=== PATIENT | male | born 1975 | race Two or more races ===

== ENCOUNTER 2023-05-09 07:48 | Day surgery (SDC) | payer BC ==
[2023-04-30 15:35] LABS: BASOPHILS # (AUTO) 0.1 X10'3 (0-0.2); BASOPHILS % (AUTO) 0.7 % (0-1); EOSINOPHILS # (AUTO) 0.2 X10'3 (0-0.9); LYMPHOCYTES % (AUTO) 38.7 % (21-51); MEAN CORPUSCULAR HEMOGLOBIN 30.2 PG (27.0-31.0); MEAN CORPUSCULAR HGB CONC 34.2 g/dL (33.0-36.5); MEAN CORPUSCULAR VOLUME 88.2 FL (78-98); MEAN PLATELET VOLUME 9.9 FL (7.4-10.4); MONOCYTES # (AUTO) 0.5 X10'3 (0-0.9); MONOCYTES % (AUTO) 6.6 % (2-12); PRE OP HEMATOCRIT 46.6 % (42.0-52.0); PRE OP PLATELET COUNT 220 X10'3 (140-440); PRE OP WHITE BLOOD COUNT 7.7 10'3 (4.8-10.8); RED BLOOD COUNT 5.28 X10'6 (4.70-6.10); RED CELL DISTRIBUTION WIDTH 13.1 % (11.5-14.5)
[2023-04-30 15:41] LABS: BILIRUBIN,URINE NEGATIVE (Neg); CLARITY,URINE CLEAR (Clear); COLOR,URINE YELLOW (Yellow); GLUCOSE, URINE >=1000 mg/dl (Neg); KETONES,URINE NEGATIVE (Neg); LEUKOCYTE ESTERASE ,URINE NEGATIVE (Neg); NITRITES, URINE NEGATIVE (Neg); OCCULT BLOOD,URINE NEGATIVE (Neg); PH,URINE 5.5 (4.8-8.0); PROTEIN,URINE NEGATIVE (Neg); UROBILINOGEN,URINE 0.2 E.U/dL (0.2-1.0)
[2023-04-30 15:43] LABS: UA COLLECTION TYPE CLN CATCH MIDSTREAM
[2023-04-30 15:50] LABS: ALBUMIN 4.3 G/DL (3.4-5.0); ALBUMIN/GLOBULIN RATIO 1.2 (1.1-1.5); ALKALINE PHOSPHATASE 151 IU/L (46-116); BLOOD UREA NITROGEN 16 MG/DL (7-18); BUN/CREATININE RATIO 15.1 (10.0-20.0); CALCIUM 9.6 MG/DL (8.5-10.1); CHLORIDE 103 MMOL/L (99-107); CREATININE 1.06 MG/DL (0.60-1.10); PRE OP ANION GAP 12 (8-16); PRE OP AST 62 U/L (10-37); PRE OP BILIRUB, TOTAL 1.1 MG/DL (0.0-1.0); PRE OP SODIUM 139 MMOL/L (135-145); TOTAL CARBON DIOXIDE 24.1 MMOL/L (24-32); eGFR 75 ML/MIN
[2023-04-30 15:59] LABS: PRE OP GLUCOSE 265 MG/DL (70-104)
[2023-04-30 16:01] LABS: PRE OP ALT 148 U/L (30-65)
[2023-04-30 16:07] LABS: MUCUS STRANDS FEW /LPF (Neg); SQUAMOUS EPITHELIAL CELL,UR FEW /LPF (FEW)
[2023-04-30 16:08] LABS: BACTERIA,URINE FEW /HPF (Neg); RBC,URINE 0-2 /HPF (0-2); WBC,URINE 0-4 /HPF (0-4)
[2023-04-30 17:25] LABS: HEMOGLOBIN A1C 8.2 % (4.5-6.2)
[~2023-05-09] VITALS: Ht 182.9 cm; Wt 102.4 kg
[2023-05-09] VITALS (11 sets, daily range): BP systolic 123–141; BP diastolic 76–97; PULSE 65–88; RESP 12–16; TEMP 98.1; O2SAT 94–98
[2023-05-09] MEDS: cefazolin 2gm/D5W 100mL 100 ML IV ONE ×2 (05:30→08:49)
[~2023-05-09 07:48] MED LIST: ERYT1OIN6 RIGHTEYE; METF-436 PO; famotidine 20mg tablet PO ONE; ringers solution, lacted 1,000 ML IV SCH
[2023-05-09] MEDS ORDERED: ondansetron/PF 4mg/2ml inj IV PRN (08:20)
[2023-05-09] MEDS ORDERED: morphine 4 MG/ML inj SYRINge IV PRN (08:20)
[2023-05-09] MEDS ORDERED: morphine 2 MG/ML inj. syringe IV PRN (08:20)
[2023-05-09] MEDS ORDERED: meperidine/PF 25mg/ml syringe IV PRN ×3 (08:20)
[2023-05-09] MEDS ORDERED: proCHLORperazine 10 MG/2 ml inj IV PRN (08:20)
[2023-05-09] MEDS ORDERED: ringers solution, lacted 1,000 ML IV SCH (08:20)
[2023-05-09 09:35] LABS: ALBUMIN 4.3 G/DL (3.4-5.0); ALBUMIN/GLOBULIN RATIO 1.3 (1.1-1.5); ALKALINE PHOSPHATASE 100 IU/L (46-116); BLOOD UREA NITROGEN 16 MG/DL (7-18); BUN/CREATININE RATIO 16.7 (10.0-20.0); CALCIUM 9.1 MG/DL (8.5-10.1); CHLORIDE 104 MMOL/L (99-107); CREATININE 0.96 MG/DL (0.60-1.10); PRE OP ANION GAP 11 (8-16); PRE OP AST 66 U/L (10-37); PRE OP BILIRUB, TOTAL 1.8 MG/DL (0.0-1.0); PRE OP GLUCOSE 165 MG/DL (70-104); PRE OP POTASSIUM 3.8 MMOL/L (3.4-5.1); PRE OP SODIUM 139 MMOL/L (135-145); TOTAL CARBON DIOXIDE 24.1 MMOL/L (24-32); TOTAL PROTEIN 7.7 G/DL (6.4-8.2); eCRCL 103 ML/MIN; eGFR 84 ML/MIN
[2023-05-09 09:55] LABS: PRE OP ALT 155 U/L (30-65)
[2023-05-09] MEDS ORDERED: BUPIVAcaine/PF 2.5 mg/ml (0.25%) 30ml vial ONE (10:41)
[2023-05-09] MEDS ORDERED: LIDOcaine 1% (10mg/ml)w/preservative inj. 20ml MDV ONE (10:41)
[2023-05-09] MEDS ORDERED: bacitracin 15gm ointment TP ONE (10:53)
[2023-05-09] MEDS ORDERED: fentaNYL/PF 50MCG/1 ML 2ML syringe ONE (10:56)
[2023-05-09] MEDS ORDERED: MIDAZolam 1 MG/ML 5ML VIAL ONE (10:56)
[2023-05-09] MEDS ORDERED: propofol 10mg/ml 20ml vial IV ONE (11:00)
--- NOTE | 2023-05-09 13:24 | NUR ---
PATIENT DISCHARGED FROM PACU IN STABLE CONDITION AFTER WRITTEN AND VERBAL DISCHARGE INSTRUCTIONS GIVEN. PATIENT GAVE VERBAL UNDERSTANDING OF INSTRUCTIONS GIVEN. PATIENT LEFT FACILITY VIA WHEELCHAIR WITH RN. Addendum: 05/09/23 at 1356 by Tash Blackman RN Amended: Links added.
--- NOTE | 2023-05-09 13:28 | NUR ---
Received from OR via [facility] IN STABLE CONDITION , accompanied by Anesthesiologist and WRECKING SUPERVISOR report given by WRECKING SUPERVISOR AND Anesthesiolgist. Addendum: 05/09/23 at 1331 by Tash Blackman RN Amended: Links added.
== END 2023-05-09 13:24 | disposition home or self-care (01) ==
LOC: PAS 07:48
PROVIDERS: ATTEND Podiatrist Foot & Ankle Surgery
DX: M20.42 Other hammer toe(s) (acquired), left foot (principal); M25.375 Other instability, left foot; E11.9 Type 2 diabetes mellitus without complications; E66.9 Obesity, unspecified; Z68.30 Body mass index [BMI] 30.0-30.9, adult; Z79.84 Long term (current) use of oral hypoglycemic drugs; Z72.89 Other problems related to lifestyle; Z98.52 Vasectomy status; Z79.899 Other long term (current) drug therapy
CPT/HCPCS: 28825; 36415; 80053; 81001; 82948; 83036; 85025; 93005; A6223; J0690; J2250; J2704; J3010; J3490; J7030; J7120; Z7506; Z7512; A6449; A7000